=== PATIENT | male | born 1985 | race Caucasian/White ===

== ENCOUNTER 2018-04-20 12:54 | Emergency (ER) | payer OTHER ==
--- NOTE | 2018-04-20 12:57 | ER Report ---
History and Physical Time Seen By MD: 12:57 HPI/ROS CHIEF COMPLAINT: Shortness of breath, paresthesias of the upper and lower extremities, anxiety HISTORY OF PRESENT ILLNESS: Patient is a 33-year-old male here with complaints of anxiety, shortness breath, rapid heart rate, paresthesias of the distal upper and lower extremities which started abruptly 45 minutes prior to arrival. Patient reportedly was partying this weekend with friends, drinking alcohol and boating. Patient admits that he did not keep up with his hydration. He reports that he has had similar episodes to this after drinking alcohol. Patient is maintaining 100% oxygen saturations on room air, is mildly tachycardic and mildly hypertensive at time of evaluation, anxious appearing. Patient reports that his symptoms seem to be improving since time of onset. Patient denies chest pain, nausea, vomiting, abdominal pain, fevers or chills. REVIEW OF SYSTEMS: Constitutional: No fever, no chills. Eyes: No discharge. ENT: No sore throat. Cardiovascular: No chest pain, + palpitations/rapid heart rate. Respiratory: No cough, + shortness of breath. Gastrointestinal: No abdominal pain, no vomiting. Genitourinary: No hematuria. Musculoskeletal: No back pain. Skin: No rashes. Neurological: Paresthesias the upper and lower distal extremities, anxiety Allergies: Coded Allergies: No Known Drug Allergies (Unverified , 04/20/18) Home Meds Reported Medications Propranolol Hcl (PROPRANOLOL HCL) 10 Mg Tablet, 10 MG PO PRN for Anxiety 04/20/18 Constitutional Vital Sign - Last 24 Hours 04/20/18 13:00 Temp 97.6 Pulse 100 Resp 28 B/P (MAP) 168/112 Pulse Ox 100 O2 Delivery Room Air Physical Exam General Appearance: The patient is alert, has no immediate need for airway protection and no signs of toxicity. Mild distress secondary to anxiety Eyes: Pupils equal and round no pallor or injection. ENT, Mouth: Mucous membranes are moist. Respiratory: There are no retractions, lungs are clear to auscultation. Cardiovascular: Regular rate and rhythm. Gastrointestinal: Abdomen is soft and non tender, no masses, bowel sounds normal. Neurological: No focal neurological deficits, moving all extremities spontaneously Skin: Warm and dry, no rashes. Musculoskeletal: Neck is supple non tender. Extremities are nontender, nonswollen and have full range of motion. DIFFERENTIAL DIAGNOSIS: After history and physical exam differential diagnosis was considered for anxiety, electrolyte abnormality, dehydration, alcohol withdrawal Medical Decision Making Data Points Result Diagram: 04/20/18 1259 04/20/18 1259 Laboratory Hematology Test 04/20/18 12:59 Red Blood Count 5.25 M/uL (4.00-5.60) Mean Corpuscular Volume 89.6 fL (80.0-96.0) Mean Corpuscular Hemoglobin 31.3 pg (26.0-33.0) Mean Corpuscular Hemoglobin Concent 35.0 g/dL (32.0-36.0) Red Cell Distribution Width 12.7 % (11.5-14.5) Mean Platelet Volume 7.4 fL (7.2-11.1) Neutrophils (%) (Auto) 53.5 % (39.4-72.5) Lymphocytes (%) (Auto) 30.7 % (17.6-49.6) Monocytes (%) (Auto) 8.8 % (4.1-12.4) Eosinophils (%) (Auto) 6.1 % (0.4-6.7) Basophils (%) (Auto) 0.9 % (0.3-1.4) Nucleated RBC Relative Count (auto) 0.2 /100WBC Neutrophils # (Auto) 3.3 K/uL (2.0-7.4) Lymphocytes # (Auto) 1.9 K/uL (1.3-3.6) Monocytes # (Auto) 0.5 K/uL (0.3-1.0) Eosinophils # (Auto) 0.4 K/uL (0.0-0.5) Basophils # (Auto) 0.1 K/uL (0.0-0.1) Nucleated RBC Absolute Count (auto) 0.01 K/uL Sodium Level 138 mmol/L (137-145) Potassium Level 2.8 mmol/L (3.5-5.0) Chloride Level 99 mmol/L (98-107) Carbon Dioxide Level 26 mmol/L (22-30) Blood Urea Nitrogen 14 mg/dl (9-21) Creatinine 1.00 mg/dl (0.66-1.25) Glomerular Filtration Rate Calc > 60.0 Random Glucose 135 mg/dl (75-110) Calcium Level 8.9 mg/dl (8.4-10.2) Total Bilirubin 0.7 mg/dl (0.2-1.3) Aspartate Amino Transf (AST/SGOT) 49 U/L (0-35) Alanine Aminotransferase (ALT/SGPT) 39 U/L (0-56) Alkaline Phosphatase 80 U/L (0-126) Total Protein 7.2 g/dl (6.3-8.2) Albumin 4.5 g/dl (3.5-5.0) Chemistry Test 04/20/18 12:59 White Blood Count 6.1 k/uL (4.5-11.0) Red Blood Count 5.25 M/uL (4.00-5.60) Hemoglobin 16.5 g/dL (14.0-18.0) Hematocrit 47.1 % (42.0-52.0) Mean Corpuscular Volume 89.6 fL (80.0-96.0) Mean Corpuscular Hemoglobin 31.3 pg (26.0-33.0) Mean Corpuscular Hemoglobin Concent 35.0 g/dL (32.0-36.0) Red Cell Distribution Width 12.7 % (11.5-14.5) Platelet Count 266 K/uL (150-450) Mean Platelet Volume 7.4 fL (7.2-11.1) Neutrophils (%) (Auto) 53.5 % (39.4-72.5) Lymphocytes (%) (Auto) 30.7 % (17.6-49.6) Monocytes (%) (Auto) 8.8 % (4.1-12.4) Eosinophils (%) (Auto) 6.1 % (0.4-6.7) Basophils (%) (Auto) 0.9 % (0.3-1.4) Nucleated RBC Relative Count (auto) 0.2 /100WBC Neutrophils # (Auto) 3.3 K/uL (2.0-7.4) Lymphocytes # (Auto) 1.9 K/uL (1.3-3.6) Monocytes # (Auto) 0.5 K/uL (0.3-1.0) Eosinophils # (Auto) 0.4 K/uL (0.0-0.5) Basophils # (Auto) 0.1 K/uL (0.0-0.1) Nucleated RBC Absolute Count (auto) 0.01 K/uL Glomerular Filtration Rate Calc > 60.0 Calcium Level 8.9 mg/dl (8.4-10.2) Total Bilirubin 0.7 mg/dl (0.2-1.3) Aspartate Amino Transf (AST/SGOT) 49 U/L (0-35) Alanine Aminotransferase (ALT/SGPT) 39 U/L (0-56) Alkaline Phosphatase 80 U/L (0-126) Total Protein 7.2 g/dl (6.3-8.2) Albumin 4.5 g/dl (3.5-5.0) EKG/Imaging EKG Interpretation 12 lead EKG: Normal sinus rhythm, rate 98, QTC 446, no ischemic changes Rhythm: normal sinus rhythm [place]: normal QRS: normal ST segments: normal Monitor Interpretation: Normal Sinus Rhythm Imaging Location: [facility] - [place] Patient: Richard Phillips : 1985 Visit/Account:[id number] Date of Sevice: 04/20/2018 2 VIEWS CHEST INDICATION: Shortness of breath. COMPARISON: None available FINDINGS: Cardiomediastinal silhouette and pulmonary vessels within normal limits. There is no focal infiltrate or lobar consolidation. There is no pneumothorax or pleural effusion. No nodule. Upper abdomen is unremarkable. No acute bony abnormality. IMPRESSION: 1. No acute cardiopulmonary process. ED Course/Re-evaluation ED Course Patient is a 33-year-old male here with complaints of anxiety, distal extremity paresthesias, shortness breath. Patient reportedly was partying over the course of the weekend, not keeping up with his hydration status. He has had similar symptoms in the past after similar weekend activities. Patient is maintaining 100% SPO2 on room air. Patient was given fluid resuscitation to optimize hydration status, Ativan for anxiolytic. EKG showed no ischemic changes or arrhythmias. Chest x-ray was clear. Labs were remarkable for a potassium of 2.8 which was repleted with 40 mEq of oral potassium. Patient was advised to follow up with his PCP in the next 2 days for repeat labs and evaluation. He was advised to return to the emergency department if you develop recurrent symptoms , worsening fatigue, palpitations. Patient was stable at time of discharge. Decision to Disposition Date: Apr 20, 2018 Decision to Disposition Time: 14:07 Depart Departure Latest Vital Signs Vital Signs Date Time Temp Pulse Resp B/P (MAP) Pulse Ox O2 Delivery O2 Flow Rate FiO2 04/20/18 13:00 97.6 100 28 168/112 100 Room Air Impression: Primary Impression: Hypokalemia Additional Impression: Dehydration Condition: Improved Disposition: HOME OR SELF-CARE Patient Instructions: Dehydration (ED), Hypokalemia (ED) Additional Instructions: Please drink plenty of water. Please follow-up with her family doctor in the next 3 days for repeat lab work as your potassium levels were noted to be low on today's evaluation. You were given 40 mEq of potassium repletion. Please return promptly if your symptoms recur or if you develop fevers, chest pain, shortness breath, nausea, vomiting, weakness or motor deficits. Problem Qualifiers GIL ROSALES DO Apr 20, 2018 12:57
[2018-04-20] MEDS ORDERED: PROP10TA58 PO (13:08)
[2018-04-20] MEDS ORDERED: NS(*) 0.9% 1000 ML BAG 1,000 ML IV ONE (13:12)
[2018-04-20] MEDS ORDERED: LORazepam 2 MG/ML VIAL IVP ONE (13:15)
[2018-04-20 13:25] LABS: PLATELET COUNT, AUTOMATED 266 K/uL (150-450)
--- NOTE | 2018-04-20 13:25 | EKG ---
FACILITY: [facility] - [place] PATIENT NAME: AZUCENA BUCK : [id number] MR: [id number] V: [id number] EXAM DATE: ORDERING PHYSICIAN: GIL ROSALES TECHNOLOGIST: PARISH Castillo Reason : Blood Pressure : / mmHG Vent. Rate : 098 BPM Atrial Rate : 098 BPM P-R Int : 150 ms QRS Dur : 094 ms QT Int : 350 ms P-R-T Axes : 072 071 038 degrees QTc Int : 446 ms Sinus rhythm Possible Left atrial enlargement Borderline ECG No previous ECGs available Confirmed by SCOTT RODRIGUEZ ([id number] on 04/21/2018 6:03:54 AM Referred By: BOBBY Confirmed By:SCOTT RODRIGUEZ
[2018-04-20] MEDS ORDERED: POTASSIUM CHL 20 MEQ TABCR PO ONE (13:35)
--- NOTE | 2018-04-20 14:01 | RADIOLOGY IMAGING REPORT ---
FACILITY: [facility] PATIENT NAME: Richard Phillips : 1985 MR: [id number] V: [id number] EXAM DATE: ORDERING PHYSICIAN: GIL ROSALES TECHNOLOGIST: Location: [facility] [place] Patient: Richard Phillips : 1985 Visit/Account:[id number] Date of Sevice: 04/20/2018 2 VIEWS CHEST INDICATION: Shortness of breath. COMPARISON: None available FINDINGS: Cardiomediastinal silhouette and pulmonary vessels within normal limits. There is no focal infiltrate or lobar consolidation. There is no pneumothorax or pleural effusion. No nodule. Upper abdomen is unremarkable. No acute bony abnormality. IMPRESSION: 1. No acute cardiopulmonary process. Report Dictated By: Richard Branch at 04/20/2018 1:55 PM Report E-Signed By: Richard Branch at 04/20/2018 1:56 PM WSN:[id number]
[2018-04-20 14:16] VITALS: BP 143/91
== END 2018-04-20 14:24 | disposition home or self-care (01) ==
LOC: ER 13:07
DX: E87.6 Hypokalemia (principal); E86.0 Dehydration
CPT/HCPCS: 71046; 85025; 93005; 96361; 96374; 99284; J2060; J7030; 82040; 82247; 82310; 82374; 82435; 82565; 82947; 84075; 84132; 84155; 84295; 84450; 84460; 84520